=== PATIENT | female | born 1990 ===

== ENCOUNTER 2025-01-01 19:45 | Emergency (ER) | payer SELFPAY ==
[~2025-01-01] VITALS: Ht 165.1 cm; Wt 49.9 kg
--- NOTE | 2025-01-01 19:59 | NUR ---
PT CARE ASSUMED AT THIS TIME
[2025-01-01 20:28] LABS: IMMATURE GRANULOCYTE ABSOLUTE 0.03 K/uL (0-1); NUCLEATED RED BLOOD CELLS 0.0 % (0.0-0.19); PLATELET COUNT (AUTO) 310 K/uL (130-400); RED BLOOD CELL COUNT(AUTO) 3.32 MIL/uL (4.00-5.50); RED CELL DISTRIBUTION WIDTH 12.3 % (11.0-15.5); WHITE BLOOD COUNT (AUTO) 6.7 K/uL (4.8-10.8)
[2025-01-01 20:44] LABS: CREATININE 0.6 mg/dL (0.5-1.0); GLOMERULAR FILTR. RATE CALC 121.0 mL/min (>90); GLUCOSE,RANDOM 109.0 mg/dL (70-105); SODIUM SERUM 138.0 mmol/L (136-145); UREA NITROGEN, BLOOD 14.0 mg/dL (7-18)
[2025-01-01] MEDS: 0.9%NACL 1000ML 1,000 ML IV ONE (20:46)
[2025-01-01 20:47] VITALS: PULSE 77; RESP 20
[2025-01-01 21:05] LABS: APPEARANCE,URINE CLOUDY (CLEAR); GLUCOSE, URINE (UA) NEGATIVE (NEGATIVE); LEUKOCYTE ESTERASE ,URINE 250 Leu/uL (NEGATIVE); NITRATE,URINE NEGATIVE (NEGATIVE); OCCULT BLOOD,URINE SMALL (NEGATIVE)
[2025-01-01 21:06] LABS: COVID19 (SARS ANTIGEN RAPID) PRESUMPTIVE NEGATIVE (NEGATIVE)
[2025-01-01 21:07] LABS: ADD UA MICROSCOPIC YES
[2025-01-01 21:10] LABS: SQUAMOUS EPITHELIAL CELL,UR MANY /HPF (0-2)
[2025-01-01 21:13] LABS: INFLUENZA TYPE A Negative For Type A (NEGATIVE); INFLUENZA TYPE B Negative For Type B (NEGATIVE)
--- NOTE | 2025-01-01 21:23 | HMCIMG ---
EXAM: CR Chest, 1 View. CLINICAL HISTORY: sob COMPARISON: None provided. FINDINGS: LUNGS: The lungs show no infiltrate or other acute finding. PLEURAL SPACES: No evidence of pleural effusion or pneumothorax. MEDIASTINUM: Cardiac size and mediastinal contours within normal limits. BONES: No acute osseous abnormality. IMPRESSION: No acute cardiopulmonary pathology is evident. /[place]
[2025-01-01] MEDS ORDERED: NITR100C4 PO (22:23)
[2025-01-01] MEDS ORDERED: GUAI237L82 PO (22:23)
--- NOTE | 2025-01-01 22:23 | ERN ---
ED Note History of Present Illness Stated Complaint: COUGH AND FEVER Chief Complaint: Cough Time Seen by MD: 19:49 Time Seen by Midlevel: 19:49 Dictation: The patient is a 34-year-old female with no significant past medical history who presents to the emergency department with complaints of green productive cough, fevers, headache, bilateral ear pain onset today. Patient reports chest pain with coughing. Reports some shortness of breath. Reports her has same symptoms at home. Allergies: Coded Allergies: No Known Drug Allergies (Unverified Allergy, Unknown, 01/01/25) Past Medical History Past Medical History: No Pertinent History Surgical History: None RN Note Reviewed/Agreed w/PFSH: Yes Review of System Dictation Constitutional: Negative for ,chills, and weight loss positive for fever Eyes: Negative for injury, pain,redness, and discharge ENT: Negative for injury,pain or swelling Cardiovascular: Negative for palpitations, and edema positive for chest pain Respiratory: Negative for shortness of breath, and wheezing, positive for cough Abdomen/GI: Negative for abdominal pain, nausea, vomiting, diarrhea, and constipation Back: Negative for injury and pain : Negative for injury, bleeding and discharge MS/Extremity: Negative for injury and deformity Skin: Negative for rash, and discoloration Neuro: Negative for weakness, numbness, tingling, and seizure positive for headache Psych: Negative for suicide ideation, homicidal ideation, and hallucinations Initial Vital Sign VS Vital Signs Date Time Temp Pulse Resp B/P (MAP) Pulse Ox O2 Delivery O2 Flow Rate FiO2 01/01/25 19:57 99.0 99 18 124/80 100 Room Air 0 01/01/25 20:00 28 Physical Exam Dictation Vital Signs reviewed General Appearance: Alert, oriented x 3, no acute distress, well developed, nourished. Head and Face: non-traumatic. Eyes: PERRL, pink conjunctivas, eyelid no trauma, anterior chamber with arcus senilis. Ears: Pinnas intact and no signs of trauma or erythema ear canals clear and no discharge TM no erythema Nose: No discharge, no bleeding. Oropharynx: Mouth normal, tongue pink. pharynx clear,no erythema, tonsils no exudates, no abscesses noted, mucous membrane moist Neck: Supple, non-tender, no thyromegaly, no masses, no JVD, no bruits Breast:Deferred Chest:No tenderness, no crepitus, no paradoxical movement, no retractions Lungs:Clear, well-ventilated, symmetric, no rales, no wheezing, no rhonchi, no stridor, good breath sounds bilaterally Heart: Regular rate, regular rhythm, no murmur, no gallops Vascular: no peripheral edema, Abdomen: Soft, positive bowel sounds, nondistended, no guarding, nontender, no rebound, no masses no hepatomegaly, no splenomegaly, no Apodaca's sign, no hernias. Rectal: Deferred Genital: Deferred Neurological: Normal speech, motor function intact, sensory function intact Musculoskeletal: Neck nontender, full range of motion, back nontender, full range of motion, Extremities: nontender, full range of motion Skin: Color pink, dry, no turgor, no rash, no lacerations, no abrasions, no contusions. Lymphatic: Deferred Results (Laboratory/Radiology) Laboratory/Radiology Laboratory Tests Test 01/01/25 20:20 01/01/25 20:38 01/01/25 20:42 White Blood Count 6.7 K/uL (4.8-10.8) Red Blood Count 3.32 MIL/uL (4.00-5.50) L Hemoglobin 9.8 g/dL (12.0-16.0) L Hematocrit 30.1 % (36-48) L Mean Corpuscular Volume 90.7 fL (79-99) Mean Corpuscular Hemoglobin 29.5 pg (27.0-33.0) Mean Corpuscular Hemoglobin Concent 32.6 g/dL (32.0-36.0) Red Cell Distribution Width 12.3 % (11.0-15.5) Platelet Count 310 K/uL (130-400) Mean Platelet Volume 9.1 fL (7.5-10.5) Immature Granulocyte % (Auto) 0.4 % (0-1) Neutrophils (%) (Auto) 58.8 % (40.0-77.0) Lymphocytes (%) (Auto) 28.7 % (21.0-51.0) Monocytes (%) (Auto) 9.0 % (3.0-13.0) Eosinophils (%) (Auto) 2.7 % (0.0-8.0) Basophils (%) (Auto) 0.4 % (0.0-5.0) Neutrophils # (Auto) 3.9 K/uL (1.8-7.7) Lymphocytes # (Auto) 1.9 K/uL (1.0-4.8) Monocytes # (Auto) 0.6 K/uL (0.1-1.0) Eosinophils # (Auto) 0.18 K/uL (0.00-0.70) Basophils # (Auto) 0.03 K/uL (0.00-0.20) Absolute Immature Granulocyte (auto 0.03 K/uL (0-1) Nucleated Red Blood Cells 0.0 % (0.0-0.19) Sodium Level 138 mmol/L (136-145) Potassium Level 3.5 mmol/L (3.5-5.1) Chloride Level 104 mmol/L (101-111) Carbon Dioxide Level 26 mmol/L (21-32) Blood Urea Nitrogen 14 mg/dL (7-18) Creatinine 0.6 mg/dL (0.5-1.0) Glomerular Filtration Rate Calc 121 mL/min (>90) Random Glucose 109 mg/dL (70-105) H Total Calcium 8.3 mg/dL (8.5-10.1) L Troponin I High Sensitivity 4 ng/L (4-50) Serum Test, Qualitative NEGATIVE (NEGATIVE) Urine Color COLORLESS (YELLOW) Urine Appearance CLOUDY (CLEAR) H Urine pH 6.0 (5.0-8.0) Urine Specific [place] 1.004 (1.001-1.031) Urine Protein NEGATIVE mg/dL (NEGATIVE) Urine Glucose (UA) NEGATIVE mg/dL (NEGATIVE) Urine Ketones NEGATIVE mg/dL (NEGATIVE) Urine Occult Blood SMALL (NEGATIVE) H Urine Nitrate NEGATIVE (NEGATIVE) Urine Bilirubin NEGATIVE mg/dL (NEGATIVE) Urine Urobilinogen 0.2 mg/dL (0.2-1.0) Urine Leukocyte Esterase 250 Didi/uL (NEGATIVE) H Urine RBC 2-5 /HPF (0-1) H Urine WBC 11-25 /HPF (0-1) H Urine Squamous Epithelial Cells MANY /HPF (0-2) Urine Bacteria RARE /HPF (None Seen) Influenza Type A Antigen Negative For Type A Influenza Type B Antigen Negative For Type B SARS-CoV-2 Antigen (Rapid) PRESUMPTIVE NEGATIVE REASON: sob ORDERING PHYSICIAN: FRANCI FINLEY IN HOUSE COUNSEL PROCEDURE: CXR1VW - CHEST 1VW EXAM: CR Chest, 1 View. CLINICAL HISTORY: sob COMPARISON: None provided. FINDINGS: LUNGS: The lungs show no infiltrate or other acute finding. PLEURAL SPACES: No evidence of pleural effusion or pneumothorax. MEDIASTINUM: Cardiac size and mediastinal contours within normal limits. BONES: No acute osseous abnormality. IMPRESSION: No acute cardiopulmonary pathology is evident. /[place] Labs Reviewed?: Yes EKG: (+) rhythm (Sinus rhythm) EKG Comment: Date:01/01/2025 Time:2013 Ventricular rate:82 AR interval:134 QRS duration:89 QT/QTc:383/449 EKG interpretation: Sinus rhythm Reviewed by ED Attending no STEMI ED Course ED Course Orders Procedure Category Date Status Time Covid19 (Sars Antigen LAB 01/01/25 Complete Rapid) 20:05 Influenza Type A & B, LAB 01/01/25 Complete Rapid 20:05 Cbc With Differential LAB 01/01/25 Complete 20:05 Chest 1vw RAD 01/01/25 Resulted 20:05 12 Lead Ekg Tracing- EKG 01/01/25 Logged Technical 20:05 0.9%Nacl 1000ml (Ns PHA 01/01/25 Complete 1000ml) 20:30 Troponin I High LAB 01/01/25 Complete Sensitivity 20:05 Basic Metabolic Panel LAB 01/01/25 Complete 20:05 Testing, LAB 01/01/25 Complete Serum Hcg 20:05 Ipratropium/Albuterol PHA 01/01/25 Complete Neb (Duoneb) 20:30 Acetaminophen 500mg PHA 01/01/25 Complete Tab (Tylenol 500mg T 20:30 Guaifenesin-Codeine PHA 01/01/25 Complete Syrup 5ml (Robitussi 20:30 Urinalysis Profile LAB 01/01/25 Complete 20:49 Culture Urine BLESSING 01/01/25 In Process 21:07 Ceftriaxone 1g Vial PHA 01/01/25 Complete (Rocephine 1g Inj) 22:00 Current Medications Medications (Trade) Dose Ordered Sig/Aniceto Route PRN Reason Start Time Stop Time Status Last Admin Dose Admin Acetaminophen (TYLenol 500MG TAB) 1,000 mg ONCE ONCE PO 01/01/25 20:30 11/20/25 20:31 DC 01/01/25 20:46 Albuterol (DUOneb) 1 UDVIAL ONCE ONCE IH 01/01/25 20:30 01/01/25 20:31 DC 01/01/25 20:46 Ceftriaxone Sodium (ROCEphine 1G INJ) 1 gm ONCE ONCE IVPB 01/01/25 22:00 01/01/25 22:03 DC 01/01/25 22:14 Guaifenesin/ Codeine Phosphate (RobiTUSSin AC 5 ML SYRUP) 10 ml ONCE ONCE PO 01/01/25 20:30 01/01/25 20:31 DC 01/01/25 20:45 Sodium Chloride 1,000 ml @ 0 mls/hr ONCE ONCE IV 01/01/25 20:30 01/01/25 20:31 DC 01/01/25 20:46 Vital Signs Date Time Temp Pulse Resp B/P (MAP) Pulse Ox O2 Delivery O2 Flow Rate FiO2 01/01/25 21:11 86 15 122/77 100 Nasal Cannula* 2 28 01/01/25 20:47 77 20 01/01/25 20:00 98.8 76 19 119/91 100 Nasal Cannula* 2 28 01/01/25 19:57 99.0 99 18 124/80 100 Room Air 0 HEART Score Response (Comments) Value History: Low suspicion (0) 0 EKG: Normal 0 Age: < 45yrs (0) 0 Risk Factors: No known risk factors (0) 0 Initial Troponin: Normal limit (0) 0 HEART Score Risk: Low Risk for MACE (1-3) Total 0 Medical Decision Making MDM The patient is a 34-year-old female with no significant past medical history who presents to the emergency department with complaints of green productive cough, fevers, headache, bilateral ear pain onset today. Patient reports chest pain with coughing. Reports some shortness of breath. Reports her has same symptoms at home. CBC showed no leukocytosis, mild normocytic anemia, chemistry showed no electrolyte imbalance, negative troponin, chest x-ray showed no acute pathology, serology was negative. Urinalysis positive for leukocyte esterase. Patient was giving a dose of Rocephin. Patient received supportive care treatment in the ER. On physical exam patient is in no acute distress, stable vital signs. Patient will be discharged to follow up with PCP. Differential diagnosis: URI, pneumonia, pneumothorax, costochondritis Need for hospitalization: Patient does not meet criteria for hospitalization. There are no social concerns with this patient. DX & DISP Disposition: Discharge Departure Impression: Primary Impression: Viral URI with cough Additional Impression: UTI (urinary tract infection) Condition: Stable Scripts Guaifenesin/Dextromethorphan (Robitussin Cough-Chest Dm Liq) 100 Mg-5 Mg/5 Ml Liquid 10 ML PO Q8H for 7 Days, #210 ML 0 Refills Prov: MALIAFRANCI MISHRA 01/01/25 Nitrofurantoin Monohyd/M-Cryst (Macrobid 100 mg Capsule) 100 Mg Capsule 1 CAP PO BID for 5 Days, #10 CAP 0 Refills Prov: MALIAFRANCI MISHRA 01/01/25 Additional Instructions: Your labs were unremarkable. Your chest x-ray did not show any signs of pneumonia. Please follow up with the primary doctor in 1-2 days. If anything worsens please return to ER. FOLLOW-UP WITH PRIMARY CARE PROVIDER IN 1 TO 2 DAYS. TAKE MEDICATIONS DIRECTED HERE IN THE EMERGENCY ROOM. OKAY TO CONTINUE HOME MEDICATIONS UNLESS OTHERWISE DISCUSSED DURING YOUR VISIT IN THE EMERGENCY ROOM TODAY. RETURN TO YOUR NEAREST EMERGENCY ROOM IF SYMPTOMS WORSEN OR IF THERE IS NO IMPROVEMENT. CALL 911 IF YOU NEED IMMEDIATE ASSISTANCE. TAKE TYLENOL [id number] NEEDED AND IF NO CONTRAINDICATIONS ARE PRESENT. INCREASE ORAL HYDRATION. A WOUND CULTURE OR URINE CULTURE WAS ORDERED HERE IN THE EMERGENCY ROOM DEPARTMENT PLEASE FOLLOW-UP WITH PRIMARY CARE PROVIDER AND ADVISE THEM TO GET REPEAT PORTS FROM OUR FACILITY. IF YOU HAD ANY HELGA WRAP/SPLINTS THAT WERE APPLIED HERE, PLEASE DO NOT REMOVE THEM UNTIL YOU SEE YOUR PRIMARY CARE OR SPECIALTY. Referrals: SELF,REFERRAL (PCP) Time of Disposition: 22:23 I have reviewed the case, and I agree with, Diagnosis and Plan FINLEY,FRANCI MISHRA Jan 01, 2025 22:23
[2025-01-01 23:00] VITALS: BP 102/67; PULSE 75; RESP 18; TEMP 98.7; O2SAT 98
--- NOTE | 2025-01-02 09:44 | EKG ---
[facility] Test Date: 2025-01-01 Test Time: 20:14:55 Pat Name: TRISHA HERNANDEZ Department: ED Room: Gender: F Extruder: [id number] : 1990 Requested By: FRANCI FINLEY Order Number: [id number] Reading MD: Rita Navarro Measurements Intervals Lizella Rate: 82 P: 55 MD: 134 QRS: 63 QRSD: 89 T: 43 QT: 383 QTc: 449 Interpretive Statements Sinus rhythm No previous ECG available for comparison Electronically Signed On 01-03-2025 14:14:36 HOSE TENDER by Rita Navarro Please click the below link to view image of tracing.
== END 2025-01-02 00:02 | disposition home or self-care (01) ==
LOC: EDH 19:45
DX: J06.9 Acute upper respiratory infection, unspecified (principal); B97.89 Other viral agents as the cause of diseases classified elsewhere; N39.0 Urinary tract infection, site not specified; E11.9 Type 2 diabetes mellitus without complications; Z20.822 Contact with and (suspected) exposure to COVID-19
CPT/HCPCS: 99285; 96365; 96361; 71045; 87426; 84484; 80048; 84703; 85025; 87086 ×2; 87186; 87804 ×2; 81001; 36415; 93005; 94640; J7030; J0696; 99284